=== PATIENT | female | born 1950 | race American Indian/Alaskan Native ===

== ENCOUNTER 2019-08-10 01:18 | Outpatient (CLI) | payer MEDICARE, SELFPAY ==
--- NOTE | 2019-08-10 10:15 | DI.NM_ITS ---
APPROVED REPORT Exam: Exercise Treadmill Patient Location: Out-Patient Room/Bed: Stress Nurse: Amanda Canseco RN BMI: 26.78 Baseline Rhythm: Sinus Rhythm Indications: Chest pain. Medical History Medical History: HTN Cardiac Medications: Patient is unsure of her medication schedule., Allergies: Benadryle. PCN. Cardiac Risk Factors: HTN. Former smoker. Pretest Chest Pain Characteristics: Non-exertional Chest pain Exercise History: Sedentary Lung Sounds: Clear to auscultation Heart Sounds: Regular Stress Test Details Test: Exercise stress testing was performed using a Devin protocol. Nuclear Acquisition: Rest Tc-99m/Stress Tc-99m 1 day Rest Isotope: Tc-99m Sestamibi. Dose: 10.8 Date: 08/10/2019 Injection Time: 0830 Stress Isotope: Tc-99m Sestamibi. Dose: 33.3 Date: 08/10/2019 Injection Time: 1147 HR Resting HR Supine: 69 bpm Max Heart Rate (APMHR): 152 bpm Resting HR Standin bpm Target HR (85% APMHR): 129 bpm Max HR Achieved: 133 bpm % of APMHR: 87 HR response to stress: Normal HR response to stress BP Resting BP Supine: 154/78 mmHg Resting BP Standin/80 mmHg Max BP: 192/98 mmHg Recovery BP: 150/80 mmHg BP response to stress: Normal blood pressure response to stress. ECG Resting ECG: Sinus Rhythm Stress ECG: Sinus Tachycardia ST Change: No significant ST segment changes Arrhythmia: None Recovery ECG: Sinus Rhythm, Recovery ST Change: No significant ST segment changes Recovery Arrhythmia: None Clinical Reason for Termination: Fatigue Stress Symptoms: General Fatigue Exercise duration: 4 min00 sec Highest Stage Reached: Stage 1: 1.7 mph at 10% grade. Exercise capacity: 4.64 METs Functional Capacity: Average Capacity Stress ECG Conclusion 1. Patient exercised on the Devin protocol and completed stage I, workload of 4.64 METS. She achieve d a maximal heart rate of 133 which is 87% maximal predicted heart rate for age 2. She stopped due to fatigue. There were no symptoms of chest discomfort suggestive of angina 3. Electrocardiographically the test was negative for myocardial ischemia Protocol Used: Devin Protocol Stress Test Summary STAGE Time (mins) Speed (mph) Grade (%) HR BP SYMPTOMS METS Supine 69 154/78 Standing 78 152/80 1 3 1.7 10 132 154/86 4.6 2 4 1.7 10 4.6 3 9 3.4 14 10.2 4 12 4.2 16 12.9 5 15 5.0 18 17.2 1 min recovery 88 192/98 3 min recovery 75 150/80 6 min recovery 75 150/80 Twinge of sharp chest pain subsided after a few seconds. MPI Conclusion Myocardial perfusion suggesting apical ischemia EF 77%
== END 2019-08-10 01:38 ==
PROVIDERS: PCP Internal Medicine; Visit Provider Internal Medicine Interventional Cardiology
DX: R07.9 Chest pain, unspecified (principal); I10 Essential (primary) hypertension; R53.83 Other fatigue; Z87.891 Personal history of nicotine dependence
CPT/HCPCS: 78452; 93016; 93018; 93017

== ENCOUNTER 2023-07-05 08:39 | Day surgery (SDC) | payer MEDICARE, SELFPAY ==
[2023-07-05 09:20] VITALS: BP 126/98; PULSE 76; RESP 16; TEMP 36.7; O2SAT 97
--- NOTE | 2023-07-05 09:45 | W.ANESPRE ---
General Info Date of Service Date Performed: 07/05/23 Height: 5 ft 5 in Weight: 78.3 kg Body Mass Index (BMI): 28.7 Surgical Procedure: Operation Date: 07/05/23 11:40 Proposed Procedure Side Surgeon p Cataract Extraction with IOL Implant Left Dada Nur MD Meds Allergies and Home Medications Allergies Allergy/AdvReac Type Severity Reaction Status Date / Time diphenhydramine Allergy Hives Verified 07/05/23 09:08 Penicillins Allergy Urticaria Verified 07/05/23 09:08 amlodpine Allergy Intermediate Uncoded 07/05/23 09:08 Home Medication Medication Instructions Recorded aspirin 81 mg tablet,delayed 81 mg PO DAILY 07/03/23 release (Adult Aspirin Regimen) atorvastatin 20 mg tablet 20 mg PO DAILY 07/03/23 losartan 100 mg tablet 100 mg PO DAILY 07/03/23 magnesium gluconate 500 mg tablet 250 mg PO DAILY 07/03/23 sertraline 50 mg tablet 50 mg PO DAILY 07/03/23 triamcinolone acetonide 0.1 % 1 applic topical DIRECTED 07/03/23 topical cream carvedilol 25 mg tablet 25 mg PO BID 07/04/23 Current Visit Medications: Current Medications Generic Name Dose Route Start Last Admin Trade Name Freq PRN Reason Stop Dose Admin Acetaminophen 1,000 mg 07/05/23 06:00 Acetaminophen 500 Mg Tab PO 08/04/23 05:59 Q4H PRN PRN Balanced Salt Solution 500 ml 07/05/23 06:00 Balanced Salt Soln.-Plus 500 Ml Bag OP 08/04/23 05:59 DIRECTED SHEBA Miscellaneous Medication 0 ml 07/05/23 06:00 Prednisolone 1%, Moxifloxacin 0.5%, Bromfenac 0.09% 5ml Btl OS 08/04/23 05:59 DIRECTED SHEBA Miscellaneous Medication 0 ml 07/05/23 06:00 07/05/23 09:41 Tropicam./Phenyleph. (1/2.5%) 10 Ml Btl OS 08/04/23 05:59 1 drp DIRECTED SHEBA Administration Tetracaine HCl 0 ml 07/05/23 06:00 Tetracaine 0.5% 4 Ml Btl OS 08/04/23 05:59 DIRECTED SHEBA PFSH Active Problems Active Problems: Problem Status Onset Code Cortical age-related cataract, left eye H25.012 Nuclear age-related cataract, left eye H25.12 Medical History Medical History Polymyalgia rheumatica Tachycardia Labile blood pressure ROBBIE (obstructive sleep apnea) Iron deficiency anemia Hiatal hernia Glaucoma Depressive disorder Carpal bone fracture Cardiomegaly Alopecia HTN (hypertension) Surgical History Surgical History H/O wrist surgery S/P tonsillectomy History of hysterectomy History of surgery on lower extremity denies Hx of colonoscopy S/P repair of paraesophageal hernia H/O arthroscopy of shoulder Tobacco Smoking/Tobacco Use Status: Former Tobacco Use Alcohol Alcohol Intake: never Substance Use Substance use: Never Substance use type: does not use Vital Signs and Lab Results Vital Signs Most Recent Vital Signs in EMR: Most Recent Vital Signs Temp Pulse Resp BP Pulse Ox 36.7 C 76 16 126/98 H 97 07/05/23 09:20 07/05/23 09:20 07/05/23 09:20 07/05/23 09:20 07/05/23 09:20 Lab Results Blood Type / Crossmatch: No Data to Display Complete Blood Count: No Data to Display Complete Metabolic Panel: No Data to Display Liver Function Panel: No Data to Display Coagulation Panel: No Data to Display Cardiac Panel: No Data to Display Arterial Blood Gas: No Data to Display Venous Blood Gas: No Data to Display Pancreas Panel: No Data to Display Thyroid Panel: No Data to Display Infectious Disease: No Data to Display Blood Cultures: No Data to Display Toxicology Panel: No Data to Display Anesthesia Assessment and Plan Anesthesia History Personal History: No History of Anesthesia Complications Family History: No Family History of Anesthesia Complications Exercise Tolerance Exercise Tolerance: Metabolic Equivalents<4 Pertinent Negatives Pertinent Negatives: No Symptoms of GERD Cardiac & Pulmonary Exam Cardiac Exam: Normal S1/S2 Heart Sounds Pulmonary Exam: Clear Bilateral Breath Sounds Implantable Cardiac Device Does patient have a Pacemaker or an ICD?: No Airway Exam Known Difficult Airway: No Mallampati Class: 2 Mouth Opening: Normal (> 3cm) Thyromental Distance: Greater than 3 cm Neck Range of Motion: Full ROM Neck Circumference: Normal Teeth Condition: Normal Dentition ASA Classification ASA Score: ASA 3 Emergency Case?: No NPO Status NPO Status: NPO Clears >2 hours, Solids >8 hours Anesthesia Plan Resuscitation Status: Full Code Anesthesia Technique: MAC Anesthesia Airway Planned: Natural Airway Monitors Used: Standard Monitors
[2023-07-05 09:48] VITALS: BMI 28.7
[2023-07-05] MEDS: Balanced Salt Soln.-PLUS 500 ML BAG OP (10:46)
[2023-07-05] MEDS: Tetracaine 0.5% 4 ML BTL OS (10:47)
[2023-07-05] MEDS: Duovisc Viscoelastic System EACH 1 EACH (10:48)
[2023-07-05] MEDS: Lidocaine 1% Pres-Free 5 ML VIAL (10:48)
[2023-07-05] MEDS: Povidone-Iodine Ophth 30 ML BTL (10:49)
[2023-07-05 11:05] VITALS: BP 139/96; PULSE 74; RESP 18; TEMP 36.6; O2SAT 95
--- NOTE | 2023-07-05 11:10 | W.PM.DSUDISC ---
Date of service: 07/05/23 Time of Service: 11:10 Discharge Plan Disposition Patient Disposition: Home Discharge Details Attending Provider: Dada Nur Primary Care Provider: Evie Hawkins Home Meds and New Rx's Prescriptions: No Action atorvastatin 20 mg tablet 20 mg PO DAILY Patient Comments: TAKE 1 TABLET BY MOUTH ONCE DAILY losartan 100 mg tablet 100 mg PO DAILY Patient Comments: TAKE 1 TABLET BY MOUTH ONCE DAILY sertraline 50 mg tablet 50 mg PO DAILY Patient Comments: TAKE 1 TABLET BY MOUTH ONCE DAILY aspirin [Adult Aspirin Regimen] 81 mg tablet,delayed release (DR/EC) 81 mg PO DAILY magnesium gluconate 500 mg tablet 250 mg PO DAILY triamcinolone acetonide 0.1 % cream 1 applic topical DIRECTED carvedilol 25 mg tablet 25 mg PO BID Discharge Instructions Stand Alone Forms: DSU Post-Op Cataract, Alistair Hinds (DSU) Discharge Orders Discharge Orders: Discharge Order (Routine); Ordered 07/04/23 Ordered By: Dada Nur DS: Diagnosis Discharge Diagnosis (1) Cortical age-related cataract, left eye: Status: Resolved (2) Nuclear age-related cataract, left eye: Status: Resolved
--- NOTE | 2023-07-05 11:11 | W.PM.OP ---
Date of service: 07/05/23 Time of Service: 11:11 Operative Note Operative Note DATE OF PROCEDURE: 07/05/23 PRE-OP DIAGNOSIS: Nuclear/cortical cataract, left eye POST-OP DIAGNOSIS: same PROCEDURE: Cataract extraction using phacoemulsification with intraocular lens implant, left eye SURGEON: Dada Nur ANESTHESIA TYPE: Local By Surgeon and MAC Refer to Anesthesia Record PATHOLOGY: none sent COMPLICATIONS: None Patient was transported to: same day Patient's condition: stable Implants: Cristi Clareon [id number] Indications: Progressive decreased vision due to cataract, left eye Procedure Description: CATARACT SURGERY OPERATIVE REPORT PREOPERATIVE DIAGNOSIS: Nuclear/cortical cataract, left eye POSTOPERATIVE DIAGNOSIS: Same OPERATION: Cataract extraction using phacoemulsification with posterior chamber intraocular lens implant, left eye. IOL: IOL Kennel Technician/Model: Cristi Clareon [id number] IOL Power: + 20.5 diopters IOL Serial Number: [id number] Optic Diameter: 6.0mm Haptic/Overall Diameter: 13.0mm PHACO INFO: CristiCleverbugurion Vision System with OZil and Active Fluidics Cumulative Dispersed Energy (CDE): 7.17 seconds SURGEON: Dada Nur MD, BETZAIDA ANESTHESIA: Monitored Anesthesia Care (MAC), with local sub-tenon's anesthetic infiltration COMPLICATIONS: None SPECIMENS: None INDICATIONS FOR PROCEDURE: The patient is a 73-year-old lady with history of diminished visual acuity in her left eye secondary to the development of nuclear/cortical cataract. She is significantly symptomatic that she desires cataract surgery and attempt to improve and maximize her vision. The option of cataract surgery was offered to the patient and she wished to proceed. See office notes for detailed information. PROCEDURE: The correct surgical eye was identified and marked as the left eye and the pupil was dilated in the preoperative area using mydriatics and cycloplegics. The dilated pupil size was 6.0 mm. The patient elected to proceed without oral sedation. The patient was brought to the operating room where cardiopulmonary monitoring was instituted and surgical time-out was performed, confirming the correct operative eye and IOL power. Topical anesthesia was administered and ophthalmic povidone-iodine 5% was instilled into the conjunctival fornices. The barbara-ocular area was prepped with Betadine 10% solution and draped in the usual sterile fashion for intraocular surgery, including an aperture drape. A Tegaderm transparent film dressing was cut in half and used to cover the lashes and lid margins. Care was taken to sequester the lashes and lid margins under the Tegaderm dressing. A lid speculum was placed between the lids of the operative eye and the Cristi LuxOR Revalia operating microscope was maneuvered into position. Clara scissors were then used to make a conjunctival buttonhole approximately 6mm posterior to the limbus in the inferonasal quadrant. Blunt dissection was carried out to expose bare sclera, and a blunt-tipped sub-tenon?s anesthesia cannula was introduced and passed posteriorly along the globe where non-preserved plain lidocaine was injected into posterior sub-Tenon?s space. A sideport knife was used to make a paracentesis port. Intraocular phenylephrine/lidocaine was injected into the anterior chamber. The anterior chamber was then filled with viscoelastic. A keratome knife was used construct a two-plane clear corneal tunnel extending 2.0mm into clear cornea. A flap was raised on the anterior capsule and capsulorhexis forceps were used to complete a continuous curvilinear capsulorhexis of 5.0 mm. Balanced salt solution was then used to perform cortical cleaving hydrodissection and nuclear hydrodelineation until the lens could be freely rotated within the capsular bag. The lens nucleus was then disassembled and removed within the capsular bag and iris plane using phacoemulsification. Residual cortical material was removed using the irrigation/aspiration handpiece. The posterior capsule was carefully polished to remove as much residual lens epithelial cells as safely possible. The capsular bag was then inflated and the anterior chamber deepened with viscoelastic. The lens implant described above was inserted into the capsular bag using the Cristi Autonome Injector. A Kuglen hook was used to dial the IOL into position. Residual viscoelastic was then removed first from posterior to the IOL, then from the anterior chamber using the I/A handpiece. The lens implant was noted to center nicely within the capsular bag. The incisions were stromally hydrated, and the anterior chamber was reformed using BSS. Then 0.5cc of moxifloxacin 1.0mg/ml were injected into the capsular bag and anterior chamber. The incisions were checked with a Weck spear and found to be secure. Several drops of ophthalmic povidone-iodine 5% were then applied to the eye followed by two drops of combination steroid/NSAID/antibiotic solution. The drapes were removed and a clear plastic protective eye shield was placed over the eye. The patient was then returned to Same Day Surgery in stable condition.
--- NOTE | 2023-07-05 11:26 | W.ANESPOSTOP ---
Postoperative Evaluation Date, Time and Location Date Performed: 07/05/23 Time Performed: 11:26 Patient Location: Day Surgery Unit Vital Signs Most Recent Imported Vital Signs: Most Recent Vital Signs Temp Pulse Resp BP Pulse Ox 36.7 C 76 16 126/98 H 97 07/05/23 09:20 07/05/23 09:20 07/05/23 09:20 07/05/23 09:20 07/05/23 09:20 Pain Score Most Recent Pain Score: Most Recent Pain Score Pain Level 0 07/05/23 09:20 Assessment Mental Status: Awake (Alert & Oriented to Patient Baseline) Airway and Respiratory Function: Patent airway with normal (patient baseline) respiratory exam Cardiovascular Function: Hemodynamically Stable Hydration Status: Adequately Hydrated Nausea & Vomiting: No Nausea or Vomiting Pain: Pt. Denies Any Pain Peripheral Nerve Block: Patient did not receive a nerve block
== END 2023-07-05 11:35 | disposition home or self-care (01) ==
LOC: SUR 08:40
PROVIDERS: PCP Internal Medicine; Visit Provider Ophthalmology
PROC: (CPT 66984; principal; 2023-07-05 11:30)
DX: H25.012 Cortical age-related cataract, left eye (principal); H25.12 Age-related nuclear cataract, left eye
CPT/HCPCS: 66984; 00123; V2632; J2003

== ENCOUNTER 2023-07-19 08:44 | Day surgery (SDC) | payer MEDICARE, SELFPAY ==
[2023-07-19 08:48] VITALS: BP 124/80; PULSE 66; RESP 16; TEMP 36.1; O2SAT 95
--- NOTE | 2023-07-19 09:21 | W.ANESPRE ---
General Info Date of Service Date Performed: 07/19/23 Height: 5 ft 5 in Weight: 77.9 kg Body Mass Index (BMI): 28.5 Surgical Procedure: Operation Date: 07/19/23 11:40 Proposed Procedure Side Surgeon p Cataract Extraction with IOL Implant Right Dada Nur MD Meds Allergies and Home Medications Allergies Allergy/AdvReac Type Severity Reaction Status Date / Time diphenhydramine Allergy Hives Verified 07/19/23 08:55 Penicillins Allergy Urticaria Verified 07/19/23 08:55 amlodpine Allergy Intermediate Uncoded 07/19/23 08:55 Home Medication Medication Instructions Recorded aspirin 81 mg tablet,delayed 81 mg PO DAILY 07/03/23 release (Adult Aspirin Regimen) atorvastatin 20 mg tablet 20 mg PO DAILY 07/03/23 losartan 100 mg tablet 100 mg PO DAILY 07/03/23 magnesium gluconate 500 mg tablet 250 mg PO DAILY 07/03/23 sertraline 50 mg tablet 50 mg PO DAILY 07/03/23 triamcinolone acetonide 0.1 % 1 applic topical DIRECTED 07/03/23 topical cream carvedilol 25 mg tablet 25 mg PO BID 07/04/23 Current Visit Medications: Current Medications Generic Name Dose Route Start Last Admin Trade Name Freq PRN Reason Stop Dose Admin Acetaminophen 1,000 mg 07/19/23 06:00 Acetaminophen 500 Mg Tab PO 08/18/23 05:59 Q4H PRN PRN Balanced Salt Solution 500 ml 07/19/23 06:00 Balanced Salt Soln.-Plus 500 Ml Bag OP 08/18/23 05:59 DIRECTED [facility] Miscellaneous Medication 0 ml 07/19/23 06:00 Prednisolone 1%, Moxifloxacin 0.5%, Bromfenac 0.09% 5ml Btl OD 08/18/23 05:59 DIRECTED SHEBA Miscellaneous Medication 0 ml 07/19/23 06:00 07/19/23 09:09 Tropicam./Phenyleph. (1/2.5%) 10 Ml Btl OD 08/18/23 05:59 1 drp DIRECTED SHEBA Administration Tetracaine HCl 0 ml 07/19/23 06:00 Tetracaine 0.5% 4 Ml Btl OD 08/18/23 05:59 DIRECTED SHEBA PFSH Active Problems Active Problems: Problem Status Onset Code Cortical age-related cataract, right eye H25.011 Nuclear age-related cataract, right eye H25.11 Cortical age-related cataract, left eye H25.012 Nuclear age-related cataract, left eye H25.12 Medical History Medical History Polymyalgia rheumatica Tachycardia Labile blood pressure ROBBIE (obstructive sleep apnea) Iron deficiency anemia Hiatal hernia Glaucoma Depressive disorder Carpal bone fracture Cardiomegaly Alopecia HTN (hypertension) Surgical History Surgical History H/O wrist surgery S/P tonsillectomy History of hysterectomy History of surgery on lower extremity denies Hx of colonoscopy S/P repair of paraesophageal hernia H/O arthroscopy of shoulder Tobacco Smoking/Tobacco Use Status: Former Tobacco Use Alcohol Alcohol Intake: never Substance Use Substance use: Never Substance use type: does not use Vital Signs and Lab Results Vital Signs Most Recent Vital Signs in EMR: Most Recent Vital Signs Temp Pulse Resp BP Pulse Ox 36.1 C L 66 16 124/80 95 07/19/23 08:48 07/19/23 08:48 07/19/23 08:48 07/19/23 08:48 07/19/23 08:48 Lab Results Blood Type / Crossmatch: No Data to Display Complete Blood Count: No Data to Display Complete Metabolic Panel: No Data to Display Liver Function Panel: No Data to Display Coagulation Panel: No Data to Display Cardiac Panel: No Data to Display Arterial Blood Gas: No Data to Display Venous Blood Gas: No Data to Display Pancreas Panel: No Data to Display Thyroid Panel: No Data to Display Infectious Disease: No Data to Display Blood Cultures: No Data to Display Toxicology Panel: No Data to Display Imaging and Studies Imaging and Studies Study information below may be from another EMR and interpreted by another provider. Please see original notes in EMR for more complete details. Stress Test Summary: 08/10/19: Stress ECG Conclusion 1. Patient exercised on the Devin protocol and completed stage I, workload of 4.64 METS. She achieved a maximal heart rate of 133 which is 87% maximal predicted heart rate for age 2. She stopped due to fatigue. There were no symptoms of chest discomfort suggestive of angina 3. Electrocardiographically the test was negative for myocardial ischemia MPI Conclusion Myocardial perfusion suggesting apical ischemia EF 77% Anesthesia Assessment and Plan Anesthesia History Personal History: No History of Anesthesia Complications Family History: No Family History of Anesthesia Complications Exercise Tolerance Exercise Tolerance: Metabolic Equivalents<4 Cardiac & Pulmonary Exam Cardiac Exam: Normal S1/S2 Heart Sounds Pulmonary Exam: Clear Bilateral Breath Sounds Implantable Cardiac Device Does patient have a Pacemaker or an ICD?: No Airway Exam Known Difficult Airway: No Mallampati Class: 2 Mouth Opening: Normal (> 3cm) Thyromental Distance: Greater than 3 cm Neck Range of Motion: Full ROM Neck Circumference: Normal Teeth Condition: Normal Dentition ASA Classification ASA Score: ASA 3 Emergency Case?: No NPO Status NPO Status: NPO Clears >2 hours, Solids >8 hours Anesthesia Plan Resuscitation Status: Full Code Anesthesia Technique: MAC Anesthesia Airway Planned: Natural Airway Monitors Used: Standard Monitors
[2023-07-19] MEDS: Povidone-Iodine Ophth 30 ML BTL (09:52)
[2023-07-19] MEDS: Tetracaine 0.5% 4 ML BTL OD (09:52)
[2023-07-19 09:56] VITALS: BMI 28.5
[2023-07-19] MEDS: Balanced Salt Soln.-PLUS 500 ML BAG OP (09:59)
[2023-07-19] MEDS: Lidocaine 1% Pres-Free 5 ML VIAL (10:00)
[2023-07-19] MEDS: Duovisc Viscoelastic System EACH 1 EACH (10:00)
--- NOTE | 2023-07-19 10:20 | ROE_ITS ---
Date of service: 07/19/23 Time of Service: 10:20 Operative Note Operative Note DATE OF PROCEDURE: 07/19/23 PRE-OP DIAGNOSIS: Nuclear/cortical cataract, right eye POST-OP DIAGNOSIS: same PROCEDURE: Cataract extraction using phacoemulsification with intraocular lens implant, right eye SURGEON: Dada Nur ANESTHESIA TYPE: Local By Surgeon and MAC Refer to Anesthesia Record ESTIMATED BLOOD LOSS: 0 PATHOLOGY: none sent COMPLICATIONS: None Patient was transported to: same day Patient's condition: stable Implants: Cristi Clareon [id number] Indications: Progressive decreased vision due to cataract, right eye Procedure Description: CATARACT SURGERY OPERATIVE REPORT PREOPERATIVE DIAGNOSIS: Nuclear/cortical cataract, right eye POSTOPERATIVE DIAGNOSIS: Same OPERATION: Cataract extraction using phacoemulsification with posterior chamber intraocular lens implant, right eye. IOL: IOL Furniture Stainer/Model: Cristi Clareon [id number] IOL Power: + 20.0 diopters IOL Serial Number: [id number] Optic Diameter: 6.0mm Haptic/Overall Diameter: 13.0mm PHACO INFO: CristiBrew Solutionsurion Vision System with OZil and Active Fluidics Cumulative Dispersed Energy (CDE): 8.0 seconds SURGEON: Dada Nur MD, BETZAIDA ANESTHESIA: Monitored Anesthesia Care (MAC), with local sub-tenon's anesthetic infiltration COMPLICATIONS: None SPECIMENS: None INDICATIONS FOR PROCEDURE: The patient is a 73-year-old lady with history of diminished visual acuity in both eyes secondary to the development of bilateral nuclear/cortical cataract. She has already undergone cataract surgery in the left eye and is doing well postoperatively. She now presents for cataract surgery in the right eye. See office notes for detailed information. PROCEDURE: The correct surgical eye was identified and marked as the right eye and the pupil was dilated in the preoperative area using mydriatics and cycloplegics. The dilated pupil size was 6.0 mm. The patient elected to proceed without oral sedation. The patient was brought to the operating room where cardiopulmonary monitoring was instituted and surgical time-out was performed, confirming the correct operative eye and IOL power. Topical anesthesia was administered and ophthalmic povidone-iodine 5% was instilled into the conjunctival fornices. The barbara-ocular area was prepped with Betadine 10% solution and draped in the usual sterile fashion for intraocular surgery, including an aperture drape. A Tegaderm transparent film dressing was cut in half and used to cover the lashes and lid margins. Care was taken to sequester the lashes and lid margins under the Tegaderm dressing. A lid speculum was placed between the lids of the operative eye and the Rebecca-Saulo operating microscope was maneuvered into position. Clara scissors were then used to make a conjunctival buttonhole approximately 6mm posterior to the limbus in the inferonasal quadrant. Blunt dissection was carried out to expose bare sclera, and a blunt-tipped sub-tenon?s anesthesia cannula was introduced and passed posteriorly along the globe where non- preserved plain lidocaine was injected into posterior sub-Tenon?s space. A sideport knife was used to make a paracentesis port. Intraocular phenylephrine/lidocaine was injected into the anterior chamber. The anterior chamber was then filled with viscoelastic. A keratome knife was used to construct a two--plane clear corneal tunnel extending 2.0mm into clear cornea. A flap was raised on the anterior capsule and capsulorhexis forceps were used to complete a continuous curvilinear capsulorhexis of 5.0 mm. Balanced salt solution was then used to perform cortical cleaving hydrodissection and nuclear hydrodelineation until the lens could be freely rotated within the capsular bag. The lens nucleus was then disassembled and removed within the capsular bag and iris plane using phacoemulsification. Residual cortical material was removed using the I/A handpiece. The posterior capsule was carefully polished to remove as much residual lens epithelial cells as safely possible. The capsular bag was then inflated and the anterior chamber deepened with cohesive viscoelastic. The lens implant described above was inserted into the capsular bag using the Cristi Autonome Injector. A Kuglen hook was used to dial the IOL into position. Residual viscoelastic was then removed first from posterior to the IOL, then from the anterior chamber using the I/A handpiece. The lens implant was noted to center nicely within the capsular bag. The incisions were stromally hydrated, and the anterior chamber was reformed using BSS. Then 0.5cc of moxifloxacin 1.0mg/ml were injected into the capsular bag and anterior chamber. The incisions were checked with a Weck spear and found to be secure. Several drops of ophthalmic povidone-iodine 5% were then applied to the eye followed by two drops of combination steroid/NSAID/antibiotic solution. The drapes were removed and a clear plastic protective eye shield was placed over the eye. The patient was then returned to Same Day Surgery in stable condition.
--- NOTE | 2023-07-19 10:20 | W.PM.DSUDISC ---
Date of service: 07/19/23 Time of Service: 10:20 Discharge Plan Disposition Patient Disposition: Home Discharge Details Attending Provider: Dada Nur Primary Care Provider: Evie Hawkins Home Meds and New Rx's Prescriptions: No Action atorvastatin 20 mg tablet 20 mg PO DAILY Patient Comments: TAKE 1 TABLET BY MOUTH ONCE DAILY losartan 100 mg tablet 100 mg PO DAILY Patient Comments: TAKE 1 TABLET BY MOUTH ONCE DAILY sertraline 50 mg tablet 50 mg PO DAILY Patient Comments: TAKE 1 TABLET BY MOUTH ONCE DAILY aspirin [Adult Aspirin Regimen] 81 mg tablet,delayed release (DR/EC) 81 mg PO DAILY magnesium gluconate 500 mg tablet 250 mg PO DAILY triamcinolone acetonide 0.1 % cream 1 applic topical DIRECTED carvedilol 25 mg tablet 25 mg PO BID Discharge Instructions Stand Alone Forms: [facility] Post-Op Cataract, Alistair Hinds (DS[facility]) Discharge Orders Discharge Orders: Discharge Order (Routine); Ordered 07/19/23 Ordered By: Dada Nur DS: Diagnosis Discharge Diagnosis (1) Cortical age-related cataract, right eye: Status: Resolved (2) Nuclear age-related cataract, right eye: Status: Resolved
[2023-07-19 10:29] VITALS: BP 130/84; PULSE 64; RESP 16; TEMP 36.4; O2SAT 93
--- NOTE | 2023-07-19 10:36 | W.ANESPOSTOP ---
Postoperative Evaluation Date, Time and Location Date Performed: 07/19/23 Time Performed: 10:30 Patient Location: Day [facility] Unit Vital Signs Most Recent Imported Vital Signs: Most Recent Vital Signs Temp Pulse Resp BP Pulse Ox 36.4 C L 64 16 130/84 93 07/19/23 10:29 07/19/23 10:29 07/19/23 10:29 07/19/23 10:29 07/19/23 10:29 Pain Score Most Recent Pain Score: Most Recent Pain Score Pain Level 0 07/19/23 10:29 Assessment Mental Status: Awake (Alert & Oriented to Patient Baseline) Airway and Respiratory Function: Patent airway with normal (patient baseline) respiratory exam Cardiovascular Function: Hemodynamically Stable Hydration Status: Adequately Hydrated Nausea & Vomiting: No Nausea or Vomiting Pain: Pt. Denies Any Pain Peripheral Nerve Block: Patient did not receive a nerve block
== END 2023-07-19 10:42 | disposition home or self-care (01) ==
LOC: SUR 08:44
PROVIDERS: PCP Internal Medicine; Visit Provider Ophthalmology
PROC: (CPT 66984; principal; 2023-07-19 11:30)
DX: H25.011 Cortical age-related cataract, right eye (principal); H25.11 Age-related nuclear cataract, right eye; Z98.42 Cataract extraction status, left eye
CPT/HCPCS: 66984; 00123; V2632; J2003

== ENCOUNTER → 2023-08-30 12:36 | Outpatient (BNVA) | payer MEDICARE, SELFPAY | PROVIDERS: PCP Internal Medicine; Referring Provider Internal Medicine; Visit Provider Student in an Organized Health Care Education/Training Program | DX: J84.9 Interstitial pulmonary disease, unspecified (principal) | CPT/HCPCS: 36415; 99205 ==

== ENCOUNTER 2023-08-30 14:51 | Outpatient (REF) | payer MEDICARE, SELFPAY ==
[2023-08-31 21:44] LABS: Rheumatoid Factor <8.6 IU/mL (<12.0)
[2023-09-02 09:36] LABS: Cyclic Citrullinated Peptide <2.5 U/mL (<5.0)
[2023-09-03 15:40] LABS: ANA Interpretation Negative (Negative)
[2023-09-05 16:11] LABS: Alter tenuis/alternata IgG <2.0 mcg/mL (<12.0); Aureobasidium pullulans IgG <2.0 mcg/mL (<18.0); Micropolyspora faeni IgG <2.0 mcg/mL (<5.0); Phoma betae IgG <2.0 mcg/mL (<8.0)
== END 2023-08-30 14:52 | disposition home or self-care (01) ==
LOC: LBN 14:51
PROVIDERS: PCP Internal Medicine; Referring Provider Student in an Organized Health Care Education/Training Program; Visit Provider Student in an Organized Health Care Education/Training Program
DX: J84.9 Interstitial pulmonary disease, unspecified (principal)
CPT/HCPCS: 86001; 86200; 86038; 86431

== ENCOUNTER → 2023-10-29 14:19 | Outpatient (BNVA) | payer MEDICARE, SELFPAY | PROVIDERS: PCP Internal Medicine; Referring Provider Internal Medicine; Visit Provider Physician Assistant Surgical | DX: J84.9 Interstitial pulmonary disease, unspecified (principal) | CPT/HCPCS: 99214 ==

== ENCOUNTER → 2024-06-23 13:48 | Outpatient (BNVA) | payer MEDICARE, SELFPAY | PROVIDERS: PCP Internal Medicine; Referring Provider Internal Medicine; Visit Provider Physician Assistant Surgical | DX: J84.9 Interstitial pulmonary disease, unspecified (principal) | CPT/HCPCS: 99214 ==

== ENCOUNTER → 2024-12-22 11:33 | Outpatient (BNVA) | payer MEDICARE, SELFPAY | PROVIDERS: PCP Internal Medicine; Referring Provider Internal Medicine; Visit Provider Physician Assistant Surgical | DX: J84.9 Interstitial pulmonary disease, unspecified (principal); G47.33 Obstructive sleep apnea (adult) (pediatric); K50.00 Crohn's disease of small intestine without complications; R19.7 Diarrhea, unspecified; Z87.891 Personal history of nicotine dependence | CPT/HCPCS: 99214 ==

== ENCOUNTER → 2025-06-22 11:12 | Outpatient (BNVA) | payer MEDICARE, SELFPAY | PROVIDERS: PCP Internal Medicine; Referring Provider Internal Medicine; Visit Provider Physician Assistant Surgical | DX: J84.9 Interstitial pulmonary disease, unspecified (principal); Z87.891 Personal history of nicotine dependence | CPT/HCPCS: 99214 ==